=== PATIENT | female | born 1955 | race Caucasian/White ===

== ENCOUNTER 2016-06-19 11:45 | Inpatient (IN) | payer MEDICAID ==
[~2016-06-19] VITALS: Ht 165.1 cm; Wt 69.9 kg
[~2016-06-19 11:45] MED LIST: ALBU18HF2; CLAR10 PO; FLUT16SP15; NAPR-681 PO; OMEP20CA10; RANI150T7; TIOT18CA3; TOLT2TAB2
[2016-06-19] MEDS ORDERED: SODIUM CHLORIDE 0.9% 1,000 ML IV ONE (12:12)
[2016-06-19 12:40] LABS: BASOPHILS % 0.4 % (0.0-2.0); EOSINOPHILS % 0.2 % (0.0-5.0); HEMATOCRIT. 37.2 % (36.0-48.0); HEMOGLOBIN 12.4 g/dL (12.0-16.0); HEMOGLOBIN. 12.4 g/dL (12.0-16.0); LYMPHOCYTES % 12.3 % (20.0-50.0); MEAN CORPUSCULAR HEMOGLOBIN 27.8 pg (28.0-32.0); MEAN CORPUSCULAR HGB CONC 33.3 g/dL (31.0-37.0); MEAN CORPUSCULAR VOLUME 83.5 fL (81.0-99.0); MEAN PLATELET VOLUME 7.5 fl (7.4-10.4); MONOCYTES % 7.8 % (2.0-8.0); NEUTROPHILS % 79.3 % (40.0-76.0); PLATELET 386 x1000/uL (130-400); RED BLOOD CELL COUNT 4.45 mill/uL (4.2-5.4); RED CELL DISTRIBUTION WIDTH 14.8 % (11.6-14.6); WHITE BLOOD COUNT 12.7 x1000/uL (4.5-11.0)
[2016-06-19 12:42] LABS: CHLORIDE 104 mEq/L (98-107); INDEX HEMOLYSI 1 (1-3); INDEX ICTERIC 1 (1-4); INDEX LIPEMIC 1 (1-3)
[2016-06-19 12:47] LABS: INR 1.2; PARTIAL THROMBOPLASTIN TIME 28.6 sec (24.0-34.0); PROTHROMBIN TIME 12.3 sec
[2016-06-19 12:51] LABS: ALANINE AMINOTRANSFERASE 21 IU/L (13-61); ALBUMIN 3.1 g/dL (3.4-5.0); ANION GAP 13; CALCIUM 8.9 mg/dL (8.5-10.1); CARBON DIOXIDE 28 mEq/L (21-32); LIPASE 93 IU/L (73-393); UREA NITROGEN BLOOD 17 mg/dL (7-21); eGFR > 60 mL/min (>60)
[2016-06-19] MEDS ORDERED: ONDANSETRON HCL 4MG/2ML VIAL IV ONE (14:15)
[2016-06-19] MEDS ORDERED: CEFTRIAXONE 2 G PREMIX 50 ML IV ONE (14:45)
[2016-06-19] MEDS ORDERED: METRONIDAZOLE 500 MG PREMIX 100 ML IV ONE (14:45)
[2016-06-19] MEDS ORDERED: SODIUM CHLORIDE 0.9% 1,000 ML IV SCH (15:07)
[2016-06-19] MEDS ORDERED: CLONIDINE 0.1MG TABLET PO PRN (15:15)
[2016-06-19] MEDS ORDERED: IPRATROPIUM/ALBUTEROL 0.5-3(2.5)MG/3ML NEB INH PRN (15:15)
[2016-06-19] MEDS ORDERED: HYDROCODONE/ACETAMINOPHEN 5/325MG TABLET PO PRN (15:15)
[2016-06-19] MEDS ORDERED: ACETAMINOPHEN 325MG TABLET PO PRN (15:15)
[2016-06-19] MEDS: PANTOPRAZOLE SODIUM 40 MG/VIAL IV SCH (16:29)
[2016-06-19] MEDS ORDERED: SORBITOL 70% SOLN 30ML PO NR (21:00)
[2016-06-19] MEDS ORDERED: BISACODYL 5MG TABLET PO NR (21:00)
[2016-06-19 22:00] VITALS: BP 135/79
[2016-06-19 22:30] VITALS: BP 135/79
[2016-06-19] MEDS: ONDANSETRON HCL 4MG/2ML VIAL IV PRN (22:53)
[2016-06-20] VITALS: BP 131/92
[2016-06-20] MEDS ORDERED: POLY17PO3 PO (00:46)
[2016-06-20] MEDS ORDERED: DOCU-150 PO (00:46)
[2016-06-20] MEDS ORDERED: ALPR1TAB2 PO (00:46)
[2016-06-20] MEDS ORDERED: BISACODYL 5MG TABLET PO NR (01:00)
[2016-06-20] MEDS ORDERED: SORBITOL 70% SOLN 30ML PO NR ×2 (01:00→06:00)
[2016-06-20 01:18] LABS: HEMOGLOBIN 12.7 g/dL (12.0-16.0)
[2016-06-20 04:00] VITALS: BP 127/67
[2016-06-20] MEDS: ONDANSETRON HCL 4MG/2ML VIAL IV PRN (04:56)
[2016-06-20 06:46] LABS: INR 1.2; PARTIAL THROMBOPLASTIN TIME 27.8 sec (24.0-34.0); PROTHROMBIN TIME 12.4 sec
[2016-06-20 06:58] LABS: BASOPHILS % 0.7 % (0.0-2.0); EOSINOPHILS % 1.9 % (0.0-5.0); HEMATOCRIT. 35.6 % (36.0-48.0); HEMOGLOBIN. 11.8 g/dL (12.0-16.0); LYMPHOCYTES % 18.8 % (20.0-50.0); MEAN CORPUSCULAR HEMOGLOBIN 28.3 pg (28.0-32.0); MEAN CORPUSCULAR HGB CONC 33.3 g/dL (31.0-37.0); MEAN CORPUSCULAR VOLUME 84.9 fL (81.0-99.0); MEAN PLATELET VOLUME 8.1 fl (7.4-10.4); MONOCYTES % 7.1 % (2.0-8.0); NEUTROPHILS % 71.5 % (40.0-76.0); PLATELET 362 x1000/uL (130-400); RED BLOOD CELL COUNT 4.19 mill/uL (4.2-5.4); RED CELL DISTRIBUTION WIDTH 14.4 % (11.6-14.6); WHITE BLOOD COUNT 11.6 x1000/uL (4.5-11.0)
[2016-06-20] MEDS ORDERED: POTASSIUM CHLORIDE INJ 40 MEQ in DEXT 5% WATER 500 ML IV ONE (07:00)
[2016-06-20 07:29] LABS: CHLORIDE 110 mEq/L (98-107); INDEX HEMOLYSI 1 (1-3); INDEX ICTERIC 1 (1-4); INDEX LIPEMIC 1 (1-3)
[2016-06-20 07:46] LABS: ALANINE AMINOTRANSFERASE 19 IU/L (13-61); ANION GAP 13; CALCIUM 8.3 mg/dL (8.5-10.1); CARBON DIOXIDE 25 mEq/L (21-32); HDL CHOLESTEROL 51 mg/dL (40-59); LDL CHOLESTEROL 108 mg/dL (5-100); TRIGLYCERIDE 76 mg/dL (0-150); UREA NITROGEN BLOOD 16 mg/dL (7-21); eGFR > 60 mL/min (>60)
[2016-06-20 08:00] VITALS: BP 129/83
[2016-06-20] MEDS: SODIUM CHLORIDE 0.9% 1,000 ML IV SCH ×2 (08:27→13:47)
[2016-06-20] MEDS: PANTOPRAZOLE SODIUM 40 MG/VIAL IV SCH (08:27)
[2016-06-20] MEDS ORDERED: SODIUM CHLORIDE 0.9% 10ML VIAL ONE (10:38)
[2016-06-20 12:00] VITALS: BP 117/70
[2016-06-20] MEDS ORDERED: POTASSIUM CHLORIDE INJ 40 MEQ in DEXT 5% WATER 250 ML IV NR (12:30)
[2016-06-20] MEDS ORDERED: FENTANYL CITRATE/PF 50MCG/ML 2ML VIAL IV PRN (16:18)
[2016-06-20] MEDS ORDERED: MIDAZOLAM HCL 5 MG/5 ML VIAL IV PRN (16:18)
[2016-06-20] MEDS ORDERED: FENTANYL CITRATE/PF 50MCG/ML 2ML VIAL ONE (16:19)
[2016-06-20] MEDS ORDERED: SIMETHICONE 40 MG/0.6 ML 30ML ONE (16:19)
[2016-06-20] MEDS ORDERED: MIDAZOLAM HCL 5 MG/5 ML VIAL ONE (16:19)
[2016-06-20 20:07] VITALS: BP 124/57
[2016-06-21] VITALS: BP 128/78
[2016-06-21] MEDS: DIPHENHYDRAMINE 50MG/ML VIAL IV PRN (00:42)
[2016-06-21 04:00] VITALS: BP 110/80
[2016-06-21] MEDS: SODIUM CHLORIDE 0.9% 1,000 ML IV SCH (04:34)
[2016-06-21 06:16] LABS: BASOPHILS % 1.4 % (0.0-2.0); HEMATOCRIT. 34.1 % (36.0-48.0); HEMOGLOBIN. 11.4 g/dL (12.0-16.0); LYMPHOCYTES % 33.1 % (20.0-50.0); MEAN CORPUSCULAR HEMOGLOBIN 28.6 pg (28.0-32.0); MEAN CORPUSCULAR HGB CONC 33.4 g/dL (31.0-37.0); MEAN CORPUSCULAR VOLUME 85.6 fL (81.0-99.0); MEAN PLATELET VOLUME 8.3 fl (7.4-10.4); MONOCYTES % 9.3 % (2.0-8.0); NEUTROPHILS % 51.2 % (40.0-76.0); PLATELET 348 x1000/uL (130-400); RED BLOOD CELL COUNT 3.99 mill/uL (4.2-5.4); RED CELL DISTRIBUTION WIDTH 14.9 % (11.6-14.6); WHITE BLOOD COUNT 9.5 x1000/uL (4.5-11.0)
[2016-06-21 08:00] VITALS: BP 116/62
[2016-06-21 08:03] LABS: ANION GAP 13; CALCIUM 8.5 mg/dL (8.5-10.1); CARBON DIOXIDE 27 mEq/L (21-32); CHLORIDE 105 mEq/L (98-107); INDEX HEMOLYSI 1 (1-3); INDEX ICTERIC 1 (1-4); INDEX LIPEMIC 1 (1-3); UREA NITROGEN BLOOD 12 mg/dL (7-21); eGFR > 60 mL/min (>60)
[2016-06-21] MEDS: FAMOTIDINE 20MG/2ML VIAL IV SCH ×2 (09:19→21:27)
[2016-06-21 12:00] VITALS: BP 128/73
[2016-06-21] MEDS ORDERED: POTASSIUM CHLORIDE 20MEQ TABLET SR PO NR (12:00)
[2016-06-21 16:00] VITALS: BP 119/48
[2016-06-21 20:00] VITALS: BP 127/68
[2016-06-22] VITALS: BP 149/97
[2016-06-22] MEDS: DIPHENHYDRAMINE 50MG/ML VIAL IV PRN (00:10)
[2016-06-22] MEDS: ONDANSETRON HCL 4MG/2ML VIAL IV PRN ×2 (00:19→08:58)
[2016-06-22 04:00] VITALS: BP 117/55
[2016-06-22 06:20] LABS: BASOPHILS % 1.4 % (0.0-2.0); EOSINOPHILS % 7.2 % (0.0-5.0); HEMATOCRIT. 30.6 % (36.0-48.0); HEMOGLOBIN. 10.4 g/dL (12.0-16.0); LYMPHOCYTES % 34.3 % (20.0-50.0); MEAN CORPUSCULAR HEMOGLOBIN 28.8 pg (28.0-32.0); MEAN CORPUSCULAR HGB CONC 34.1 g/dL (31.0-37.0); MEAN CORPUSCULAR VOLUME 84.4 fL (81.0-99.0); MEAN PLATELET VOLUME 8.3 fl (7.4-10.4); MONOCYTES % 8.3 % (2.0-8.0); NEUTROPHILS % 48.8 % (40.0-76.0); PLATELET 315 x1000/uL (130-400); RED BLOOD CELL COUNT 3.62 mill/uL (4.2-5.4); RED CELL DISTRIBUTION WIDTH 14.6 % (11.6-14.6); WHITE BLOOD COUNT 5.9 x1000/uL (4.5-11.0)
[2016-06-22 06:33] LABS: ANION GAP 13; CALCIUM 8.8 mg/dL (8.5-10.1); CARBON DIOXIDE 31 mEq/L (21-32); CHLORIDE 104 mEq/L (98-107); INDEX HEMOLYSI 1 (1-3); INDEX ICTERIC 1 (1-4); INDEX LIPEMIC 1 (1-3); UREA NITROGEN BLOOD 11 mg/dL (7-21); eGFR > 60 mL/min (>60)
[2016-06-22] MEDS ORDERED: LORAZEPAM 2MG/ML CPJ IV PRN (07:00)
[2016-06-22 08:00] VITALS: BP 123/69
[2016-06-22] MEDS: FAMOTIDINE 20MG/2ML VIAL IV SCH (08:58)
[2016-06-22 12:36] VITALS: BP 121/72
[2016-06-22 16:09] VITALS: BP 118/66
[2016-06-22 16:30] VITALS: BP 118/67
== END 2016-06-22 18:55 | disposition home or self-care (01) | DRG 245 ==
LOC: ER 12:02 → 6EST 14:58 → 8WST 21:54
PROVIDERS: ADMIT Internal Medicine; ATTEND Internal Medicine
PROC: 0DBN8ZX Excision of Sigmoid Colon, Via Natural or Artificial Opening Endoscopic, Diagnostic (ICD-10-PCS; principal; 2016-06-20 16:00)
DX: K51.218 Ulcerative (chronic) proctitis with other complication (principal); R65.11 Systemic inflammatory response syndrome (SIRS) of non-infectious origin with acute organ dysfunction; K55.9 Vascular disorder of intestine, unspecified; K63.3 Ulcer of intestine; J44.9 Chronic obstructive pulmonary disease, unspecified; K62.5 Hemorrhage of anus and rectum; K62.89 Other specified diseases of anus and rectum; R10.9 Unspecified abdominal pain; R11.2 Nausea with vomiting, unspecified; R19.7 Diarrhea, unspecified; E87.6 Hypokalemia
CPT/HCPCS: 36415; 71010; 74176; 80048; 80053; 80061; 82270; 83605; 83690; 85014; 85018; 85025; 85610; 85730; 86850; 86900; 87040; 88305; 93005; 96361; 96365; 96375; 99285; A4216; C9113; J0696; J1200; J2250; J2405; J3010; J3480; J3490; J7030; J7060

== ENCOUNTER 2019-02-04 15:15 | Emergency (ER) | payer MEDICAID ==
[~2019-02-04] VITALS: Ht 170.2 cm; Wt 66.0 kg
[~2019-02-04 15:15] MED LIST changes: +ALPR1TAB2 PO; +DOCU-150 PO; -OMEP20CA10; +OMEP20CA5; +POLY17PO3 PO
[2019-02-04] MEDS ORDERED: KETOROLAC 30MG/ML VIAL IV STA (15:47)
[2019-02-04] MEDS ORDERED: SODIUM CHLORIDE 0.9% 1,000 ML IV ONE (15:47)
[2019-02-04] MEDS ORDERED: ONDANSETRON HCL 4MG/2ML INJ IV STA (15:47)
[2019-02-04 15:59] LABS: BASOPHILS % 0.6 % (0.0-2.0); EOSINOPHILS % 0.2 % (0.0-5.0); HEMATOCRIT. 38.7 % (36.0-48.0); HEMOGLOBIN. 13.2 g/dL (12.0-16.0); LYMPHOCYTES % 15.3 % (20.0-50.0); MEAN CORPUSCULAR HEMOGLOBIN 28.7 pg (28.0-32.0); MEAN CORPUSCULAR VOLUME 83.9 fL (81.0-99.0); MEAN PLATELET VOLUME 7.5 fl (7.4-10.4); MONOCYTES % 5.9 % (2.0-8.0); PLATELET 253 x1000/uL (130-400); RED BLOOD CELL COUNT 4.62 mill/uL (4.2-5.4); RED CELL DISTRIBUTION WIDTH 13.8 % (11.6-14.6)
[2019-02-04] MEDS ORDERED: SUMATRIPTAN SUCCINATE 25MG TABLET PO ONE (16:00)
[2019-02-04 16:05] LABS: CHLORIDE 106 mEq/L (98-107)
[2019-02-04] MEDS ORDERED: DIPHENHYDRAMINE 50MG/ML VIAL IV ONE (16:45)
[2019-02-04] MEDS ORDERED: METOCLOPRAMIDE HCL 10MG/2ML VIAL IV ONE (16:45)
[2019-02-04 17:26] LABS: CLARITY URINE CLOUDY (CLEAR); COLOR URINE YELLOW (YELLOW); KETONES URINE 2+ (NEGATIVE); LEUKOCYTE ESTERASE URINE NEGATIVE (NEGATIVE); NITRITE URINE NEGATIVE (NEGATIVE); OCCULT BLOOD URINE NEGATIVE (NEGATIVE); PROTEIN URINE NEGATIVE (NEGATIVE); SPECIFIC GRAVITY URINE 1.025 (1.005-1.030); UROBILINOGEN URINE 0.2 E.U./dL (0.2-1.0)
[2019-02-04] MEDS ORDERED: ACETAMINOPHEN 325MG TABLET PO ONE (23:15)
[2019-02-05] MEDS ORDERED: IBUPROFEN 600MG TABLET PO STA (03:37)
[2019-02-05 12:05] VITALS: BP 121/67
== END 2019-02-05 13:14 | disposition home or self-care (01) ==
LOC: ER 15:15
DX: R10.9 Unspecified abdominal pain (principal); K59.00 Constipation, unspecified; Z59.0 Homelessness; J45.909 Unspecified asthma, uncomplicated; I25.2 Old myocardial infarction; G43.909 Migraine, unspecified, not intractable, without status migrainosus; Z88.6 Allergy status to analgesic agent; Z91.011 Allergy to milk products; Z90.710 Acquired absence of both cervix and uterus
CPT/HCPCS: 36415; 71045; 74176; 80053; 81003; 83690; 85025; 93005; 96361; 96374; 96375; 99284; J1200; J1885; J2405; J2765; J7030